=== PATIENT | male | born 1970 | race Asian ===

== ENCOUNTER 2018-08-09 13:24 | Emergency (ER) | payer OTHER | END 2018-08-09 16:01 | disposition home or self-care (01) | LOC: FTE 16:01 | DX: M25.561 Pain in right knee (principal) | CPT/HCPCS: 73562; 99283-25 ==

== ENCOUNTER 2018-08-12 20:33 | Emergency (ER) | payer OTHER ==
[2018-08-12] MEDS: KETOROLAC 60 MG INJ IM (22:20)
== END 2018-08-12 22:31 | disposition home or self-care (01) ==
LOC: FTE 20:33
DX: M25.561 Pain in right knee (principal)
CPT/HCPCS: 96372; 99284-25; J1885